=== PATIENT | male | born 1980 | race Caucasian/White ===

== ENCOUNTER 2019-06-09 08:51 | Emergency (ER) | payer SELFPAY ==
[2019-06-09 08:58] VITALS: BP 120/83; PULSE 114; RESP 20; TEMP 36.5; O2SAT 96
--- NOTE | 2019-06-09 09:16 | ED.URI ---
HPI - URI/Sore Throat General Chief Complaint: Upper Respiratory Infection Stated Complaint: throat glands swollen History of Present Illness HPI Narrative: Patient woke up this morning and states that he has a sore throat and it is hard for him to open his mouth because it was so dry and sore. Patient states that he felt lymph nodes swollen but they went down when he had a drink. Per patient he has a skin issue that is swollen or enlarged and he would like for it to be cut out because he has been squeezing it and he was not able to get anything out at this time but it has come to a head. Related Data Home Medications Medication Instructions Recorded Confirmed amino acids 1 cap PO DAILY 06/09/19 06/09/19 [id number] 1 cap PO DAILY 06/09/19 06/09/19 [Daily Multivitamin] omega [id number] oil [Fish Oil] 1 cap PO DAILY 06/09/19 06/09/19 Allergies Allergy/AdvReac Type Severity Reaction Status Date / Time No Known Allergies Allergy Verified 06/09/19 09:18 Review of Systems Review of Systems: Narrative: CONSTITUTIONAL: Denies fever, chills, or sweats. EYES: Denies visual changes, redness, or discharge. ENT: Refer to review reports rhinorrhea, congestion, sore throat, or otalgia. CARDIOVASCULAR:Denies chest pain, palpitations, or edema. RESPIRATORY: Denies cough or dyspnea. GASTROINTESTINAL: Denies abdominal pain, nausea, vomiting, or diarrhea. GENITOURINARY: Denies dysuria or hematuria. SKIN:[Denies rash or itching. MUSCULOSKELETAL:Denies back pain, joint pain, or myalgia. NEUROLOGIC: Denies headache, numbness, or weakness. PSYCHIATRIC:Denies anxiety or depression PMFSH Comments At time as signature, I have reviewed and agree with nursing past medical, social, surgical and family history. Please see nursing chart for further information. There is no relevant family history pertinent to the presenting complaint. Exam Narrative: Exam Narrative: GENERAL:Well-appearing, well-nourished, and in no acute distress. HEAD:Normocephalic, atraumatic. EYES: PERRLA and EOMI. ENT: Nares clear, no rhinorrhea or epistaxis. Mucous membranes moist. Pharyngeal erythema enlarged tonsils NECK: Supple. CHEST: Clear to auscultation. No respiratory distress. HEART: Regular rate and rhythm. No murmur heard. Normal peripheral pulses. ABDOMEN: Soft, nontender, nondistended, normal active bowel sounds. EXTREMITIES: Normal range of motion. No edema. SKIN: Warm, dry, no rash. Right side of neck has a small cystic area that has a lump with no drainage noted at this time no pain NEURO: No focal deficits. Alert and oriented x3. Course Course Emergency Course: Patient is aware of diagnosis, understands and agrees to treatment plan. Anticipatory guidance given. Patient agrees to follow-up as directed and is aware of reasons to seek care at the emergency department. Vital Signs Vital signs: Vital Signs Temperature 97.7 F 06/09/19 08:58 Pulse Rate 114 H 06/09/19 08:58 Respiratory Rate 06/09/19 08:58 Blood Pressure 120/83 06/09/19 08:58 Pulse Oximetry 96 06/09/19 08:58 Temperature 97.7 F 06/09/19 08:58 Pulse Rate 114 H 06/09/19 08:58 Respiratory Rate 06/09/19 08:58 Blood Pressure 120/83 06/09/19 08:58 Pulse Oximetry 96 06/09/19 08:58 MDM - URI/Sore Throat Differential Diagnosis Differential diagnosis: Likely upper respiratory infection, otitis media, bronchitis and pharyngitis Lab Data Labs: Strep Screen Positive Group A Strep *(Reference Range: Negative)* Discharge Plan Discharge Clinical Impression: Strep throat, Skin abnormalities Patient Disposition: Home, Self-Care Condition: Stable Instructions: Antibiotic Form, Pharyngitis (ED), Strep Throat (ED) Additional Instructions: Take antibiotic as directed. Salt water gargles may alleviate some of your throat discomfort. Take Tylenol and/or ibuprofen per the package instruct
== END 2019-06-09 09:30 | disposition home or self-care (01) ==
PROVIDERS: Emergency Provider Nurse Practitioner Family
DX: J02.0 Streptococcal pharyngitis (principal); L98.9 Disorder of the skin and subcutaneous tissue, unspecified
CPT/HCPCS: 87880; 99213; G0463

== ENCOUNTER 2019-07-01 19:18 | Emergency (ER) | payer SELFPAY ==
[2019-07-01 19:24] VITALS: BP 164/104; PULSE 89; RESP 18; TEMP 36.9; O2SAT 99
--- NOTE | 2019-07-01 19:35 | ED.SKABFB ---
HPI - Skin/Abscess/Foreign Bdy General Chief complaint: Skin/Abscess/Foreign Body Stated complaint: sore on right knee and neck Time Seen by Provider: 07/01/19 19:35 Source: patient and RN notes reviewed History of Present Illness HPI narrative: Patient is a 39-year-old male that presents the urgent care with complaints of a chronic cyst to the right side of the neck as well as some redness to the right knee. Patient states that he noticed the redness 2 days ago and his son was diagnosed with staph recently. However, patient son is living in [place] and the patient is living in [place]. Patient states that he is on his knees a lot at work and he believes that this area will get worse and infected with staph . Patient denies any fever, chills, nausea, vomiting. Patient admits to not following up with the cyst on the right neck and reports that it has not changed in size. No other acute complaints. No acute distress noted. Patient read the plan of care. Related Data Allergies Allergy/AdvReac Type Severity Reaction Status Date / Time No Known Allergies Allergy Verified 07/01/19 19:32 Review of Systems Review of Systems: Narrative: CONSTITUTIONAL: Denies fever, chills, or sweats. EYES: Denies visual changes, redness, or discharge. ENT: Denies rhinorrhea, congestion, sore throat, or otalgia. CARDIOVASCULAR: Denies chest pain, palpitations, or edema. RESPIRATORY: Denies cough or dyspnea. GASTROINTESTINAL: Denies abdominal pain, nausea, vomiting, or diarrhea. GENITOURINARY: Denies dysuria or hematuria. SKIN: Reports of a cyst to the right side of the neck and infection in the right knee . MUSCULOSKELETAL: Denies back pain, joint pain, or myalgia. NEUROLOGIC: Denies headache, numbness, or weakness. All other systems reviewed are negative, except as documented in HPI. PMFSH Comments At the time of my signature, I reviewed and agree with the nursing past medical, surgical, social, and family history. There is no relevant family history pertinent to the patient complaint. Exam Narrative: Exam Narrative: GENERAL: This is a well-nourished, well-developed patient, in no apparent distress. HEAD: normocephalic, atraumatic. EYES: PERRL. Sclera clear/white. Vision is grossly intact. EARS: External ears normal NOSE: External nose normal with no obvious nasal discharge THROAT: Mucous membranes moist NECK: Neck supple SKIN: Pea-sized sebaceous cyst to the right side of the neck, nontender, no drainage; 5 cm area of erythema with healing folliculitis noted to the right knee without firm or fluctuant abscess. Warm, intact with no suspicious lesions or rash, good texture and turgor. NEURO: awake, alert, and oriented to person, place and time. There were no obvious focal neurologic abnormalities. EXTREMITIES: No clubbing, cyanosis, or edema. Course Vital Signs Vital signs: Vital Signs Temperature 98.4 F 07/01/19 19:24 Pulse Rate 89 07/01/19 19:24 Respiratory Rate 18 07/01/19 19:24 Blood Pressure 164/104 H 07/01/19 19:24 Pulse Oximetry 99 07/01/19 19:24 Temperature 98.4 F 07/01/19 19:24 Pulse Rate 89 07/01/19 19:24 Respiratory Rate 18 07/01/19 19:24 Blood Pressure 164/104 H 07/01/19 19:24 Pulse Oximetry 99 07/01/19 19:24 Reviewed?patient is informed that they may have pre-hypertension or hypertension based on a blood pressure reading in the department. I recommend the patient call the primary care provider listed on their discharge instructions or a physician of their choice this week to arrange follow-up for further evaluation of possible pre-hypertension or hypertension. MDM - Skin/Abscess/Foreign Bdy MDM Narrative Medical decision making narrative: Advised the patient to follow-up with his chronic issues with his PCP in [place]. That would include the cyst on the right side of the neck. Patient is aware that that is highly likley, not an active staph infection and does not need antibiotic treatment. I
== END 2019-07-01 19:55 | disposition home or self-care (01) ==
PROVIDERS: Emergency Provider Nurse Practitioner Family
DX: L73.9 Follicular disorder, unspecified (principal); L72.3 Sebaceous cyst; Z86.14 Personal history of Methicillin resistant Staphylococcus aureus infection
CPT/HCPCS: 99213; G0463